=== PATIENT | male | born 1955 | race Caucasian/White ===

== ENCOUNTER 2022-03-23 09:45 | Outpatient (REF) | payer MEDICARE, MEDICAID, SELFPAY ==
[2022-03-23 14:17] LABS: Amphetamine Screen Urine Not Detected (Not Detect); Barbiturates, Urine Not Detected (Not Detect); Benzodiazepines Screen Urine POSITIVE (Not Detect); Cannabinoid Screen Urine POSITIVE (Not Detect); Cocaine Screen Urine Not Detected (Not Detect); Fentanyl, urine POSITIVE (Not Detect); Opiate Screen Urine Not Detected (Not Detect); Phencyclidine Screen Urine Not Detected (Not Detect)
== END 2022-03-23 09:46 | disposition home or self-care (01) ==
LOC: HO.LNP 09:45
PROVIDERS: Visit Provider Nurse Practitioner Psychiatric/Mental Health
DX: F10.20 Alcohol dependence, uncomplicated (principal); Z79.891 Long term (current) use of opiate analgesic; Z79.899 Other long term (current) drug therapy
CPT/HCPCS: 80307

== ENCOUNTER 2022-03-24 14:00 | Outpatient (REF) | payer MEDICARE, MEDICAID, SELFPAY ==
[2022-03-24 14:18] LABS: MANUAL DIFF FLAG NO
[2022-03-24 14:33] LABS: Basophils Absolute Auto 0.1 X10*3/uL (0.0-0.2); Basophils Percent Auto 0.8 % (0-2); Eosinophils Absolute Auto 0.7 X10*3/uL (0.0-0.4); Eosinophils Percent Auto 8.8 % (0-4); Hematocrit 41.7 % (42.0-52.0); Hemoglobin 14.5 g/dl (14.0-18.0); Imm Gran Abs Auto 0.02 X10*3/uL (0.00-0.03); Imm Gran Pct Auto 0.3 % (0.0-0.4); Lymphocytes Absolute Auto 1.6 X10*3/uL (1.2-4.9); Lymphocytes Percent Auto 21.2 % (20-40); Mean Corpuscular HGB Conc 34.8 g/dl (31.0-36.0); Mean Corpuscular Hemoglobin 31.6 pg (27.0-33.0); Mean Corpuscular Volume 90.8 fL (80.0-98.0); Mean Platelet Volume 9.1 fL (9.4-12.4); Monocytes Absolute Auto 0.8 X10*3/uL (0.1-1.2); Monocytes Percent Auto 10.5 % (2-11); Neutrophils Absolute Auto 4.4 x10*3/uL (2.0-8.3); Neutrophils Percent Auto 58.4 % (45-73); Platelet Count 213 X10*3/uL (160-400); Red Blood Count 4.59 X10*6/uL (4.60-5.80); Red Cell Distribution Width 12.7 % (11.0-16.0); White Blood Count 7.6 X10*3/uL (4.8-10.8)
[2022-03-24 14:52] LABS: Amphetamine Screen Urine Not Detected (Not Detect); Barbiturates, Urine Not Detected (Not Detect); Benzodiazepines Screen Urine POSITIVE (Not Detect); Cannabinoid Screen Urine POSITIVE (Not Detect); Cocaine Screen Urine Not Detected (Not Detect); Fentanyl, urine Not Detected (Not Detect); Opiate Screen Urine Not Detected (Not Detect); Phencyclidine Screen Urine Not Detected (Not Detect)
[2022-03-24 14:53] LABS: Alanine Aminotransferase 25 U/L (0-40); Albumin Level 4.2 g/dL (3.5-5.0); Alkaline Phosphatase 72 U/L (39-117); Anion Gap 13 (12-20); Aspartate Amino Transferase 24 U/L (5-37); Bilirubin Total 0.5 mg/dL (0.0-1.0); Blood Urea Nitrogen 22 mg/dL (9-16); Calcium 9.1 mg/dL (8.4-10.2); Carbon Dioxide 30 mmol/L (22-29); Chloride 101 mmol/L (96-108); Estimated Glomerular Filt Rate > 60; Glucose Random 101 mg/dL (60-115); Potassium 5.1 mmol/L (3.3-5.1); Sodium 139 mmol/L (135-145); Total Protein 7.1 g/dL (6.5-8.0)
[2022-03-24 15:14] LABS: Thyroid Stimulating Hormone 1.52 uIU/mL (0.32-4.0)
== END 2022-03-24 14:01 | disposition home or self-care (01) ==
LOC: HO.LAB 14:00
PROVIDERS: Visit Provider Nurse Practitioner Psychiatric/Mental Health
DX: F33.2 Major depressive disorder, recurrent severe without psychotic features (principal); F41.1 Generalized anxiety disorder; F10.20 Alcohol dependence, uncomplicated; Z79.891 Long term (current) use of opiate analgesic
CPT/HCPCS: 80053; 80307; 84443; 85025

== ENCOUNTER 2022-04-07 08:45 | Outpatient (RCR) | payer MEDICARE, MEDICAID, SELFPAY ==
[2022-03-23 13:13] VITALS: BMI 29.5
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
[2022-03-23 15:21] VITALS: BP 126/58; PULSE 76; TEMP 37.7
--- NOTE | 2022-03-23 15:34 | PC.ADMIT ---
Patient is a 66 year old male who was referred by [facility] crisis d/t increased depression with SI. Patient self presented to crisis. Patient reports relationship and communication issues with his and issues with his 16 year old son which increases his sxs of depression. He stated his depression sxs increases when his kids are disrespectful. Patient denied SI currently however reports he does have passive thoughts thinking, whats the point to everyday life. Reports his kids are his protective factor regarding killing himself and does he not want to leave that legacy to his children. Patient is alert and oriented x4. Calm and cooperative. Presented with depressed mood and affect. Medications reconciled with patient and patient's pharmacy. Reports taking medications as prescribed.
--- NOTE | 2022-03-24 14:12 | PC.NURSE ---
case opened in tx team
--- NOTE | 2022-04-04 09:58 | P.PNPSP_ITS ---
Subjective Subjective Date of Service: 04/04/22 Reason For Visit: depression Interim History: No SI reported. Taking meds as prescribed. Continues with some depressive and anxiety symptoms, finding PHP helpful. Would like to review lab results. Medication Compliance: Yes Side effects from medications: No Attending Groups: Yes Review of Systems Acute medical concerns: No Medical Review of Systems: unchanged Review of Systems Review of Systems Yes all other systems are reviewed and are negative Constitutional: Reports no additional constitutional complaints Mental Status Exam Mental Status Exam Narrative: NAD Patient Appearance: Appropriate Patient Orientation: Person, Place, Time and Situation Level of Consciousness: Awake, Appropriate and Alert Patient Behavior: Appropriate, Cooperative and Good Eye Contact Mood Description: Depressed and Anxious Affect Description: Depressed and Anxious Patient Cognition Impaired: No Ability to Follow Directions: Good Speech Pattern: Clear and Appropriate Memory Description: Intact (Grossly intact, states that he does have difficulty with memory at times.) Hallucinations: None Delusions: Not Present Thought Process: Intact Depressive Symptoms: Increased Anxiety, Loss of Int. in Activity and Unhappiness Judgement: Fair Diagnostics Vital Signs (24Hr): BMI result Body Mass Index 29.5 Assessment & Plan Assessment & Plan (1) Major depressive disorder, recurrent severe without psychotic features: Status: Acute Code(s): F33.2 - Major depressive disorder, recurrent severe without psychotic features Assessment and Plan: Continues with depressed mood, anxiety. No SI. Reviewed recently completed labs, results in detail. (2) Generalized anxiety disorder: Status: Acute Code(s): F41.1 - Generalized anxiety disorder Plan 1. Continue with current [facility] plan of care. 2. Follow-up as per protocol. Patient educated on: diagnosis, medication risk/benefits and therapeutic strategies Reason for contiued partial hosp. stay Substantial Risk for: inability to function and med/psych decompensation Certification I certify that partial hospital treatment is medically necessary due to the symptoms and problems resulting from the patient's mental illness and the failure to treat the patient at the partial hospital level of care would likely result in the patient requiring inpatient psychiatric care which could not be prevented at a less intensive level of care. I spent minutes with the patient and/or on the patient floor today, greater than?50% of which was spent counseling/coordinating care. Discharge Plan Discharge Attending provider: Frank Black Medications: No Action methadone 10 mg Tablet 30 mg PO BID sildenafil 100 mg Tablet 100 mg PO DAILY PRN (Reason: Erectile Dysfunction) Rx Instructions: administer 30 minutes to 4 hours before activity amlodipine 10 mg Tablet 10 mg PO DAILY lisinopril 10 mg Tablet 10 mg PO DAILY alprazolam 2 mg Tablet 2 mg PO BEDTIME oxycodone 30 mg Tablet 30 mg PO TID PRN (Reason: Pain) Rx Instructions: Immediate Release celecoxib [Celebrex] 100 mg Capsule 100 mg PO BID bupropion HCl 200 mg Tablet Sustained-Release 12 Hr 200 mg PO BID omeprazole 20 mg Tablet,Delayed Release (Dr/Ec) 20 mg PO BID testosterone cypionate 200 mg/mL Kit 0.35 mg IM QWEEK Rx Instructions: Patient takes on tamsulosin 0.4 mg PO DAILY
--- NOTE | 2022-04-05 14:20 | PC.NURSE ---
I called the clients therapist, Maryse Elizondo and left message re client needing to be seen more than once a month, I asked for call back.
--- NOTE | 2022-04-05 15:42 | PC.NURSE ---
I spoke with the client Maryse Greenfield about her seeing the client more often. She states that she will increase their sessions. She will see him on 04/19 and again on 05/03.
--- NOTE | 2022-04-07 12:33 | HO.PHPPROGNO ---
Subjective Subjective Date of Service: 04/07/22 Reason For Visit: depression Medical Problems Affecting Mental Status: No Interim History: Feels overall mood improved, less depressed, less anxious. Has been working lowering celebrex, tolderating lower dose well. Will discuss with remote encoding center manager. Continues with some cognitive issues / memory, will reconsider his use marijuana regarding this. Has been experiencing this for some time. No SI/HI, satisfied with current medication regimen. Feels stable for discharge from [facility] at this time. Medication Compliance: Yes Side effects from medications: No (no new side effects. ) Attending Groups: Yes Review of Systems Acute medical concerns: No Medical Review of Systems: unchanged Review of Systems Review of Systems Yes all other systems are reviewed and are negative Constitutional: Reports no additional constitutional complaints Mental Status Exam Mental Status Exam Narrative: NAD Posture and ambulation normal. No abnormal movements, no tics/tremors. No SI/HI, no saety concerns. Patient Appearance: Appropriate Patient Orientation: Person, Place, Time and Situation Level of Consciousness: Awake, Appropriate and Alert Patient Behavior: Appropriate, Cooperative and Good Eye Contact Mood Description: Appropriate and Anxious (improved) Affect Description: Appropriate and Anxious (improved) Patient Cognition Impaired: No Ability to Follow Directions: Excellent Speech Pattern: Clear and Appropriate Memory Description: Intact (Grossly intact, states that he does have difficulty with memory at times.) Hallucinations: None Delusions: Not Present Thought Process: Intact Depressive Symptoms: Increased Anxiety (overall improved, but still present) Judgement: Good Diagnostics Vital Signs (24Hr): BMI result Body Mass Index 29.5 Assessment & Plan Assessment & Plan (1) Major depressive disorder, recurrent severe without psychotic features: Status: Acute Code(s): F33.2 - Major depressive disorder, recurrent severe without psychotic features Assessment and Plan: Feels overall mood improved, less depressed, less anxious. Has been working lowering celebrex, tolderating lower dose well. Will discuss with remote encoding center manager. Continues with some cognitive issues / memory, will reconsider his use marijuana regarding this. Has been experiencing this for some time. Although he does not identify any issues with his alcohol and cannabis use, he states that he believes the regular cannabis use may be impacting his memory and he is considering lowering amount. No SI/HI, satisfied with current medication regimen. States that he has found this PHP helpful, and has found the coping skills / techniques to be helpful. Feels stable for discharge from [facility] at this time. (2) Generalized anxiety disorder: Status: Acute Code(s): F41.1 - Generalized anxiety disorder Plan 1. Patient appears stable for discharge from [facility] at this time. 2. Patient to follow up with outpatient providers going forward. Patient educated on: diagnosis, medication risk/benefits, substance abuse and therapeutic strategies Informed Consent: understands Reason for contiued partial hosp. stay Substantial Risk for: stable for discharge Certification I certify that partial hospital treatment is medically necessary due to the symptoms and problems resulting from the patient's mental illness and the failure to treat the patient at the partial hospital level of care would likely result in the patient requiring inpatient psychiatric care which could not be prevented at a less intensive level of care. I spent minutes with the patient and/or on the patient floor today, greater than?50% of which was spent counseling/coordinating care. Discharge Plan Discharge Attending provider: Frank Black Medications: No Action methadone 10 mg Tablet 30 mg PO BID sildenafil 100 mg Tablet 100 mg PO DAILY PRN (Reason: Erectile Dysfunction) Rx Instructions: administer 30 minutes to 4 hours before activity amlodipine 10 mg Tablet 10 mg PO DAILY lisinopril 10 mg Tablet 10 mg PO DAILY alprazolam 2 mg Tablet 2 mg PO BEDTIME oxycodone 30 mg Tablet 30 mg PO TID PRN (Reason: Pain) Rx Instructions: Immediate Release celecoxib [Celebrex] 100 mg Capsule 100 mg PO BID bupropion HCl 200 mg Tablet Sustained-Release 12 Hr 200 mg PO BID omeprazole 20 mg Tablet,Delayed Release (Dr/Ec) 20 mg PO BID testosterone cypionate 200 mg/mL Kit 0.35 mg IM QWEEK Rx Instructions: Patient takes on tamsulosin 0.4 mg PO DAILY Stand Alone Forms: Patient Portal Discharge page Patient Education: Depression (DC)
--- NOTE | 2022-04-07 16:15 | PC.NURSE ---
Patient scheduled for routine discharge today. Patient feeling ready for discharge however is feeling anxious. Reviewed patient medications with patient. Patient reports taking medications as prescribed. Patient denied SI or thoughts to harm himself. Discharge report given to patient. Written information given to patient about depression. He has the crisis number if needed.
== END 2022-04-07 23:59 | disposition home or self-care (01) ==
LOC: HO.PHPA 08:45
PROVIDERS: Visit Provider Psychiatry & Neurology Psychiatry
DX: F33.2 Major depressive disorder, recurrent severe without psychotic features (principal); F41.1 Generalized anxiety disorder
CPT/HCPCS: 90791; 90853